=== PATIENT | male | born 1980 | race Caucasian/White ===

== ENCOUNTER 2018-10-13 08:32 | Emergency (ER) | payer OTHER | END 2018-10-13 10:02 | disposition home or self-care (01) | LOC: EDH 08:32 | DX: S52.591A Other fractures of lower end of right radius, initial encounter for closed fracture (principal); Z72.0 Tobacco use; X58.XXXA Exposure to other specified factors, initial encounter; Y93.89 Activity, other specified; Y92.89 Other specified places as the place of occurrence of the external cause; Y99.8 Other external cause status | CPT/HCPCS: 29125; 73110 ==